=== PATIENT | male | born 2000 | race Asian ===

== ENCOUNTER 2025-02-22 12:53 | Emergency (ER) | payer OTHER ==
[~2025-02-22] VITALS: Ht 172.7 cm; Wt 61.4 kg
[2025-02-22 13:07] VITALS: BP 93/65; PULSE 75; RESP 18; TEMP 97.7; O2SAT 100
[2025-02-22] MEDS: IBUPROFEN 600 MG TABLET PO ONE (15:42)
[2025-02-22] MEDS ORDERED: IBUP-1492 PO (16:16)
== END 2025-02-22 16:40 | disposition home or self-care (01) ==
LOC: EMS 12:53
DX: S62.665A Nondisplaced fracture of distal phalanx of left ring finger, initial encounter for closed fracture (principal); W19.XXXA Unspecified fall, initial encounter; Y93.89 Activity, other specified; Y92.89 Other specified places as the place of occurrence of the external cause; Y99.8 Other external cause status
CPT/HCPCS: 99283